=== PATIENT | male | born 1955 | race Two or more races ===

== ENCOUNTER 2018-01-26 00:28 | Emergency (ER) | payer OTHER ==
[~2018-01-26] VITALS: Ht 170.2 cm; Wt 96.2 kg
[2018-01-26] MEDS ORDERED: BENADRYL12.5 MG/5 GT (00:51)
[2018-01-26] MEDS ORDERED: CALAMINE LOTIO177 ML TP (00:52)
[2018-01-26] MEDS ORDERED: BANOPHEN25 MG PO (00:52)
[2018-01-26 01:04] VITALS: BP 146/85
[2018-01-26] MEDS ORDERED: PREDNISONE20 MG ORAL (01:19)
[2018-01-26] MEDS ORDERED: DIPHENHYDRAMINE25 M1 ORAL (01:19)
[2018-01-26] MEDS ORDERED: CEPHALEXIN500 MG ORAL (01:19)
[2018-01-26] MEDS ORDERED: DiphenhydrAMINE 50mg/ml Inj IM ONE (01:30)
[2018-01-26 01:32] VITALS: BP 146/85
--- NOTE | 2018-01-26 05:14 | Emergency Room Report ---
History of Present Illness General Chief Complaint: Skin Rash/Abscess Source: Patient Present Illness HPI 62-year-old male presents ED for evaluation. Complaining of rash and itchiness 3 weeks. States that he was seen by PMD and was prescribed Benadryl but states it is not helping. Denies any pain. Denies any fevers or chills. Denies any known food or drug allergies. Denies any sick contacts or recent travel. No other aggravating relieving factors. Denies any other associated symptoms Allergies: Coded Allergies: No Known Allergies (Unverified , 01/26/18) Patient History Past Medical History: none Past Surgical History: none Pertinent Family History: none Social History: Denies: smoking, alcohol use, drug use Immunizations: UTD Reviewed Nursing Documentation: PMH: Agreed; PSxH: Agreed Nursing Documentation-PMH Past Medical History: No Stated History Review of Systems All Other Systems: negative except mentioned in HPI Physical Exam Vital Signs Date Time Temp Pulse Resp B/P (MAP) Pulse Ox O2 Delivery O2 Flow Rate FiO2 01/26/18 00:44 98.1 18 20 146/85 99 Room Air Sp02 EP Interpretation: reviewed, normal General Appearance: no apparent distress, alert, GCS 15, non-toxic Head: normocephalic Eyes: bilateral eye normal inspection, bilateral eye PERRL ENT: normal ENT inspection Neck: normal inspection Respiratory: normal inspection Cardiovascular #1: normal inspection Gastrointestinal: normal inspection Rectal: deferred Genitourinary: no CVA tenderness Musculoskeletal: normal inspection Neurologic: alert, oriented x3, responsive, motor strength/tone normal, sensory intact, speech normal Psychiatric: judgement/insight normal, memory normal, mood/affect normal, no suicidal/homicidal ideation Skin: rash - erythematous papules to chest and back. nonerythematous base. no discharge Lymphatic: normal inspection Medical Decision Making Diagnostic Impression: Primary Impression: Rash and other nonspecific skin eruption ER Course Hospital Course 62-year-old male presents to ED with rash Differential diagnoses include: Cellulitis, dermatitis, insect bite, abscess Clinical course Patient placed on stretcher. After initial history, physical exam reveals an elderly male in no acute distress. On exam there are multiple erythematous papules noted to the chest, back. Nonerythematous base. No discharge. patient is afebrile, nontoxic appearing. Discussed with patient, family. Given Benadryl IM, prednisone here. We'll discharge with Benadryl, prednisone, Keflex. Recommend follow-up with dermatology as outpatient Diagnosis - rash stable and discharged to home with prescription for prednisone, keflex, benedryl. Instructed to followup with PMD. Instructed return to ED if symptoms recur or worsen Last Vital Signs Date Time Temp Pulse Resp B/P (MAP) Pulse Ox O2 Delivery O2 Flow Rate FiO2 01/26/18 01:32 98.1 86 20 146/85 99 Room Air Status: improved Disposition: HOME, SELF-CARE Condition: Stable Scripts Cephalexin* (KEFLEX*) 500 Mg Capsule 500 MG ORAL EVERY 6 HOURS for 7 Days, CAP Prov: Omer Bruno MD 01/26/18 Prednisone* (PREDNISONE*) 20 Mg Tablet 40 MG ORAL DAILY for 5 Days, #10 TAB Prov: Omer Bruno MD 01/26/18 Diphenhydramine Hcl* (DIPHENHYDRAMINE HCL*) 25 Mg Capsule 25 MG ORAL Q6H PRN for Itching for 5 Days, #30 CAP 0 Refills Prov: Omer Bruno MD 01/26/18 Referrals: NOT CHOSEN [facility]/,REFERRING (PCP) Patient Instructions: Omer Maravilla MD Jan 26, 2018 05:14
== END 2018-01-26 01:30 | disposition home or self-care (01) ==
LOC: EMR 01:20
DX: R21 Rash and other nonspecific skin eruption (principal); L29.9 Pruritus, unspecified
CPT/HCPCS: 99283; J1200; J7512

== ENCOUNTER 2018-02-01 11:04 | Emergency (ER) | payer OTHER ==
[~2018-02-01] VITALS: Ht 170.2 cm; Wt 96.2 kg
[~2018-02-01 11:04] MED LIST: BANOPHEN25 MG PO; BENADRYL12.5 MG/5 GT; CALAMINE LOTIO177 ML TP; CEPHALEXIN500 MG ORAL; DIPHENHYDRAMINE25 M1 ORAL; PREDNISONE20 MG ORAL
[2018-02-01] MEDS: Solu-MEDROL 125mg Inj IM ONE (11:57)
[2018-02-01] MEDS ORDERED: MEDROL DOSEPAK4 MG ORAL (12:13)
[2018-02-01] MEDS ORDERED: PEPCID AC20 M2 PO (12:13)
[2018-02-01] MEDS: LORazepam 1mg tab ORAL ONE (12:22)
[2018-02-01 12:23] VITALS: BP 115/72
--- NOTE | 2018-02-01 13:09 | Emergency Room Report ---
History of Present Illness General Chief Complaint: Allergic Reaction Source: Patient Present Illness HPI Patient present with complaints of rash Reports that ongoing for the past 7 days He was seen here previously reports that he felt somewhat better after initial intervention however after running out of that the steroids he feels the rash has returned and itching is worse Denies any chest pain or shortness of breath denies any vomiting or diarrhea After eval in the patient, it also appears that the patient has recently colored his hair Asking further he reports that he did call his hair about 10 days ago He also reports that he put the wrong chemical and mixed it up with alcohol as well Allergies: Coded Allergies: No Known Allergies (Unverified , 01/26/18) Patient History Past Medical History: see triage record Pertinent Family History: none Reviewed Nursing Documentation: PMH: Agreed; PSxH: Agreed Nursing Documentation-PMH Past Medical History: No Stated History Review of Systems All Other Systems: negative except mentioned in HPI Physical Exam Vital Signs Date Time Temp Pulse Resp B/P (MAP) Pulse Ox O2 Delivery O2 Flow Rate FiO2 02/01/18 11:14 98.1 99 18 111/70 99 Room Air Sp02 EP Interpretation: reviewed, normal General Appearance: well appearing, no apparent distress Head: normocephalic, atraumatic Eyes: bilateral eye PERRL, bilateral eye EOMI ENT: hearing grossly normal, normal pharynx, TMs + canals normal, uvula midline Neck: full range of motion, supple, no meningismus, no bony tend Respiratory: lungs clear, normal breath sounds, no rhonchi, no respiratory distress, no retraction, no accessory muscle use Cardiovascular #1: normal peripheral pulses, regular rate, rhythm, no edema, no gallop, no JVD, no murmur Gastrointestinal: normal bowel sounds, non tender, soft, no mass, no organomegaly, non-distended, no guarding, no hernia, no pulsatile mass, no rebound Musculoskeletal: normal inspection Neurologic: oriented x3, responsive, 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, motor strength/ tone normal, sensory intact Psychiatric: mood/affect normal Skin: warm/dry, palpation normal, other - Patient has a diffuse maculopapular rash, there is also evidence on the scalp in the hairline area mild erythema more confluent, no obvious dermatomal spread no fluctuance no sloughing of the skin is appreciated Lymphatic: normal inspection, no adenopathy Medical Decision Making Diagnostic Impression: Primary Impression: Allergic reaction Additional Impression: Rash and other nonspecific skin eruption ER Course Patient appears to have likely had a reaction to the chemicals used during his haircoloring Patient appears to have been on Keflex this is discharge at this point patient is placed on a Medrol Dosepak And requires close outpatient follow-up Last Vital Signs Date Time Temp Pulse Resp B/P (MAP) Pulse Ox O2 Delivery O2 Flow Rate FiO2 02/01/18 12:23 98.1 85 18 115/72 100 Room Air Status: improved Disposition: HOME, SELF-CARE Condition: Improved Scripts Famotidine (PEPCID AC) 20 Mg Tablet 20 MG PO DAILY, #20 TAB Prov: Vanessa Arevalo DO 02/01/18 Methylprednisolone (Methylprednisolone*) 4MG Dspk 4 MG ORAL DIRECTED for 6 Days, #21 EA 0 Refills Day 1: Two tablets before breakfast, one after lunch, one after dinner, and two at bedtime. If started late in the day, take all six tablets at once or divide into two or three doses, unless otherwise directed by prescriber. Day 2: One tablet before breakfast, one after lunch, one after dinner, and two at bedtime Day 3: One tablet before breakfast, one after lunch, one after dinner, and one at bedtime Day 4: One tablet before breakfast, one after lunch, and one at bedtime Day 5: One tablet before breakfast and one at bedtime Day 6: One tablet before breakfast Prov: Vanessa Arevalo DO 02/01/18 Referrals: NOT CHOSEN [facility]/MD,REFERRING (PCP) Patient Instructions: Allergies, Rash, [id number] Additional Instructions: Patient is provided with the discharge instructions notified to follow up with primary doctor in the next 2-3 days otherwise return to the er with any worsening symptoms. Please note that this report is being documented using [employer] technology. This can lead to erroneous entry secondary to incorrect interpretation by the dictating instrument. Vanessa Arevalo DO Feb 01, 2018 13:09
== END 2018-02-01 12:35 | disposition home or self-care (01) ==
LOC: EMR 12:32
DX: T78.49XA Other allergy, initial encounter (principal); R21 Rash and other nonspecific skin eruption
CPT/HCPCS: 96372; 99283; J2930